=== PATIENT | male | born 1990 | race Caucasian/White ===

== ENCOUNTER 2018-11-18 09:41 | Outpatient (CLI) | payer OTHER, SELFPAY ==
[2018-11-18 12:50] LABS: Abs Immature Grans 0.02 k/cumm (0.0-0.09); Absolute Basophil Count 0.01 k/cumm (0.0-0.2); Absolute Eosinophil Count 0.04 k/cumm (0.0-0.7); Absolute Lymphocyte Count 1.32 k/cumm (1.2-3.4); Absolute Monocyte Count 0.96 k/cumm (0.11-0.7); Absolute Neutrophil Count 2.59 k/cumm (1.2-6.7); Basophils % 0.2; Eosinophils % 0.8; HCT 46.6 % (40.0-50.0); HGB 15.2 g/dL (13.5-17.5); Immature Grans % 0.4; Lymphocytes % 26.7; Mean Corp. HGB Concentration 32.6 g/dL (32.0-36.0); Mean Corpuscular Hemoglobin 31.1 pg (27.0-33.0); Mean Corpuscular Volume 95.3 fL (80-95); Mean Platelet Volume 11.2 fL (8.0-11.0); Monocytes % 19.4; Neutrophils % 52.5; Platelet Count 212 x1000/uL (130-400); RBC 4.89 m/cumm (4.50-6.00); RBC Distribution Width 14.2 % (11.8-14.1); White Blood Cell Count 4.94 k/cumm (4.4-10.8)
[2018-11-18 13:20] LABS: ALT 30 U/L (12-78); AST 19 U/L (15-37); Albumin 4.3 g/dL (3.4-5.0); Alkaline Phosphatase 76 U/L (46-116); Amylase 42 U/L (25-115); Anion Gap 12.2 mmol/L (3-11); BUN 14 mg/dL (7-18); Bilirubin, Total 0.3 mg/dL (0.2-1.0); CO2 26.8 mmol/L (21.0-32.0); CREATININE 1.23 mg/dL (0.70-1.30); Calcium 9.3 mg/dL (8.5-10.1); Chloride 101 mmol/L (98-107); Glucose 85 mg/dL (70-100); Lipase 84 U/L (73-393); Magnesium 2.3 mg/dL (1.8-2.4); Potassium 4.6 mmol/L (3.5-5.1); Sodium 140 mmol/L (136-145); Total Protein 7.8 g/dL (6.4-8.2)
== END 2018-11-18 10:01 ==
PROVIDERS: PCP Family Medicine; Visit Provider Nurse Practitioner Family
DX: R10.13 Epigastric pain (principal)
CPT/HCPCS: 36415; 80053; 83690; 82150; 83735; 85025

== ENCOUNTER 2018-11-21 01:11 | Outpatient (CLI) | payer OTHER, SELFPAY ==
--- NOTE | 2018-11-21 07:57 | DI.US_ITS ---
SYMPTOM/DIAGNOSIS: EPIGASTRIC PAIN, R10.13, S/P MESH HERNIA REPAIR ABDOMINAL ULTRASOUND: The visualized liver parenchyma is normal in appearance. There is no evidence of cholelithiasis. The common bile duct is of normal diameter. The pancreas and spleen appear intact. No renal abnormality is seen. The abdominal aorta is of normal diameter. Normal appearance of IVC. CONCLUSION: Normal abdominal ultrasound. The patient has reportedly had ventral hernia repair. No gross recurrent hernia is seen by ultrasound criteria. If there is a high clinical suspicion of recurrent hernia, additional evaluation with CT could be considered.
== END 2018-11-21 01:31 ==
PROVIDERS: PCP Family Medicine; Visit Provider Nurse Practitioner Family
DX: R10.13 Epigastric pain (principal); Z98.890 Other specified postprocedural states
CPT/HCPCS: 76700

== ENCOUNTER 2018-12-04 19:04 | Emergency (ER) | payer OTHER, SELFPAY ==
[2018-12-04 19:12] VITALS: BP 136/81; PULSE 101; RESP 18; TEMP 36.5; O2SAT 100
[2018-12-04] MEDS: Tetracaine 0.5% 4 ML BTL (19:39)
[2018-12-04] MEDS: Erythromycin Ophth Oint 3.5 GM TUBE (19:39)
[2018-12-04] MEDS: Fluorescein STRIPS 100/BOX 1 MG (19:39)
--- NOTE | 2018-12-04 19:40 | ED.GENADUL_ITS ---
Discharge Plan Disposition Patient Disposition: HOME Condition: Good Discharge Details Chief Complaint: EyeProblem Clinical Impression: Abrasion, corneal Primary Care Provider: Moises Lauren ED Provider: Taco Jorge Home Meds and New Rx's Prescriptions: No Action ondansetron HCl 8 mg tablet 8 mg PO TID PRN (Reason: nausea and vomiting) Qty: 60 RF: 0 cyclobenzaprine 5 MG tablet 5 - 10 mg PO tid prn Qty: 60 RF: 0 venlafaxine 75 mg capsule,extended release 24hr 75 mg PO DAILY Qty: 90 RF: 1 Discharge Instructions Instructions: Corneal Abrasion (ED) Additional Instructions: Please use the erythromycin ointment 3 times a day. 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 If you notice any worsening of your symptoms, or any new symptoms such as change in your vision, worsening eye pain, vomiting, diarrhea, fever, chills, shortness of breath, chest pain, numbness, weakness, or fainting , please return immediately to the emergency department for reevaluation. Please follow up with your primary care provider as soon as possible for reassessment and reevaluation. As always, it was a pleasure participating in your medical care today. Referrals: [facility] [OTHER] - Discharge Data Discharge Date/Time-TO BE ENTERED AT DEPARTURE: 12/04/18 19:47 Medical Decision Making This is a 28-year-old male with no significant past medical history whose tetanus is up-to-date who presents for evaluation of abrasion to his right eye. Corneal abrasion is present, no evidence of rust ring, foreign body, or other significant abnormality. Negative Anshul sign. Visual acuity is stable. He is not a contact lens wearer. We will give erythromycin ointment, recommend close follow-up with optometry. I have extensively reviewed the treatment plan and discharge instructions with the patient. I have addressed all patient concerns at this time. The patient was made aware of what symptoms to monitor for that would warrant a return to the emergency department. Discussed the plan with the patient, they demonstrate verbal understanding and agreement with our assessment and plan at this time. HPI General Date/Time Provider Initiated Documentation: 12/04/18 19:08 . HPI Narrative: This is a 28-year-old male with no significant past medical history whose tetanus is updated last year, who presents today for evaluation of right eye pain. Patient was removing a battery from underneath the car when he felt something fall into his eye. He washed out with water, but still feels like there is sandpaper under his eye. He denies any significant visual changes. This occurred roughly 6 hours ago. He denies any associated headache, numbness tingling or weakness. He has no other complaints or modifying factors. He does not use contact lenses. Related Data Home Medications Medication Instructions Recorded Confirmed cyclobenzaprine 5 - 10 mg PO tid prn #60 tab-cap 06/01/17 12/04/18 venlafaxine ER 75 mg 75 mg PO DAILY #90 tab-cap 09/20/18 12/04/18 capsule,extended release 24 hr ondansetron HCl 8 mg tablet 8 mg PO TID PRN #60 tab 11/18/18 12/04/18 Previous Rx's Medication Instructions Recorded cyclobenzaprine 5 - 10 mg PO tid prn #60 tab-cap 06/01/17 venlafaxine ER 75 mg 75 mg PO DAILY #90 tab-cap 09/20/18 capsule,extended release 24 hr ondansetron HCl 8 mg tablet 8 mg PO TID PRN #60 tab 11/18/18 Allergies Allergy/AdvReac Type Severity Reaction Status Date / Time cephalexin AdvReac Intermediate GI Unverified 12/04/18 19:14 DISTRESS-N/V/D General Stated Complaint: EyeProblem JUANITO: 4 Review of Systems Review of Systems All systems reviewed & are unremarkable except as noted in HPI and below PFSH Surgical History Tooth extraction Family History Mother Personal history of malignant neoplasm Father Myocardial infarction Sister No problems noted. Sister No problems noted. Grandfather No problems noted. Grandfather No problems noted. Grandmother No problems noted. Grandmother No problems noted. Social History Smoking/Tobacco Use Status: Never Substance use type: does not use Do you feel safe at home: Yes Do you feel safe in your relationship?: Yes Exam Narrative Exam Narrative: 1.Const: Well-nourished, Well-developed, appearing stated age 2.Eyes: PERRL, no conjunctival injection, and symmetrical lids. Right eye: EOMI, PERRL, Peripheral vision intact. No nystagmus. Fundoscopic exam shows normal optic discs and normal vasculature. No external signs of preseptal cellulitis, no redness around the eye, no proptosis. No hyphema, no signs of trauma around the eye, no periorbital emphysema. Fluorescein exam is positive for mild abrasion in the 4 o'clock position on the right eye, negative Anshul sign. Visual acuity as documented in chart. 3.ENT: Atraumatic external nose and ears. Moist MM. Neck: Symmetric, trachea midline, No thyromegaly. 4.CVS: +S1/S2, No murmurs or gallops. Peripheral pulses 2+ and equal in all extremities. Brisk capillary refill in all extremities. 5.RESP: Unlabored respiratory effort. Clear to auscultation bilaterally. No wheezes rales or rhonchi 6.GI: Soft, Nontender/Nondistended, No hepatosplenomegaly. No guarding or rebound. 7.MSK: Normocephalic/Atraumatic, Extremities w/o deformity or ttp No cyanosis or clubbing, Normal movement of all extremities 8.Skin: Warm, Dry. No rashes or lesions. 9.Neuro: workers compensation attorney II-XII grossly intact. Sensation grossly intact, no focal neurologic deficits. 10.Psych: (AAO) x3. Appropriate mood and affect Course Vital Signs Temperature 36.5 C 12/04/18 19:12 Pulse 101 H 12/04/18 19:12 Respiratory Rate 18 12/04/18 19:12 Blood Pressure 136/81 12/04/18 19:12 Pulse Oximetry 100 12/04/18 19:12 Temperature 36.5 C 12/04/18 19:12 Temperature Source Temporal Artery Scan 12/04/18 19:12 Pulse 101 H 12/04/18 19:12 Respiratory Rate 18 12/04/18 19:12 Blood Pressure 136/81 12/04/18 19:12 Blood Pressure Position Sitting 12/04/18 19:12 Pulse Oximetry 100 12/04/18 19:12 Oxygen Delivery Method Room Air 12/04/18 19:12 Oxygen Flow Rate 0 12/04/18 19:12 Pain Level 8 12/04/18 19:12
[2018-12-04 19:42] VITALS: BP 136/81; PULSE 101; RESP 18; TEMP 36.5; O2SAT 100
== END 2018-12-04 19:47 | disposition home or self-care (01) ==
PROVIDERS: Emergency Provider Student in an Organized Health Care Education/Training Program; PCP Family Medicine
DX: S05.01XA Injury of conjunctiva and corneal abrasion without foreign body, right eye, initial encounter (principal); X58.XXXA Exposure to other specified factors, initial encounter
CPT/HCPCS: 99283

== ENCOUNTER 2018-12-13 09:41 | Emergency (ER) | payer SELFPAY ==
[2018-12-13 09:44] VITALS: BP 151/79; PULSE 94; RESP 20; TEMP 36.8; O2SAT 98
--- NOTE | 2018-12-13 09:53 | W.ED.GENAD ---
Discharge Plan Disposition Patient Disposition: HOME Condition: Improving Discharge Details Chief Complaint: Laceration Clinical Impression: Laceration of arm Primary Care Provider: Moises Lauren ED Provider: Nadiya Graham Home Meds and New Rx's Prescriptions: Continued cyclobenzaprine 5 MG tablet 5 - 10 mg PO tid prn Qty: 60 RF: 0 venlafaxine 75 mg capsule,extended release 24hr 75 mg PO DAILY Qty: 90 RF: 1 Discharge Instructions Instructions: Laceration (ED) Additional Instructions: Keep wound clean, dry, covered. May wash with running water and soap but please do not soak or submerge the wound. Please monitor wound for signs of infection including redness, warmth, drainage, increased pain, fever/chills. If these or other new/worsening symptoms arise please seek care urgently once again. Please return in 10 days for suture removal Referrals: Moises Lauren [Primary Care Provider] - Medical Decision Making Patient is a 28-year-old male presents today for laceration of the left forearm. He reports that while at work earlier today he and a coworker were working with a piece of metal. He reports that when she tried to move that he quickly moved his arm resulting in the laceration to left forearm. Forearm is on the ulnar side of the proximal 2-1/2 cm in length with a 5 mm gap at the center. There is to be in the subcutaneous tissue does not violate any musculature. He denies any altered sensation. Denies other injury at the time of the incident. Patient I discussed closure options. We have decided upon sutures. We discussed risk/benefits as well as expected procedural steps. He voices understanding and wishes to proceed. Patient reports last tetanus within the last 5 years and completed by his primary care Procedure note: Using standard sterile technique, the wound was first cleansed with chlorhexidine and sterile saline. 1% lidocaine with epinephrine was then used to anesthetize the area. 4 cc was used. This sufficiently anesthetized the area. The wound was then copiously irrigated and explored to base in a bloodless field. No foreign body or debris was noted. Attention was then turned to closure. Using 5-0 nylon, the wound was closed using simple interrupted stitches. #4 replaced. Patient tolerated procedure well. Patient I discussed wound care in depth. We discussed the signs symptoms of infection when to seek care urgently once again. We will leave the current dressing on for the next 24 hours. I did advise that he cover this when it worked to help prevent infection. Advised to return in 10 days for suture removal. All his questions and concerns were addressed and he is in agreement with this plan. HPI General Mode of arrival: ambulatory. Date/Time Provider Initiated Documentation: 12/13/18 09:52. Limitations to Documentation: no limitations. Information obtained by: RN notes reviewed. History of Present Illness 28 year old M presents to the emergency department with the chief complaint of laceration left forearm, described as moderate, with intensity rated at 5. Quality is described as aching, and is localized to the left and upper extremity. Patient reports no radiation. Patient started experiencing this minute(s) and it has been constant. No relieving factors improve symptom(s), No exacerbating factors reported . Patient notes no other symptoms.. Patient did receive the following treatments prior to arrival, none Related Data Home Medications Medication Instructions Recorded Confirmed cyclobenzaprine 5 - 10 mg PO tid prn #60 tab-cap 06/01/17 12/13/18 venlafaxine ER 75 mg 75 mg PO DAILY #90 tab-cap 09/20/18 12/13/18 capsule,extended release 24 hr Previous Rx's Medication Instructions Recorded cyclobenzaprine 5 - 10 mg PO tid prn #60 tab-cap 06/01/17 venlafaxine ER 75 mg 75 mg PO DAILY #90 tab-cap 09/20/18 capsule,extended release 24 hr Allergies Allergy/AdvReac Type Severity Reaction Status Date / Time cephalexin AdvReac Intermediate GI Unverified 12/13/18 09:46 DISTRESS-N/V/D General Stated Complaint: Laceration JUANITO: 3 Review of Systems Constitutional Reports as per HPI, Denies chills and Denies fever(s) Musculoskeletal Reports as per HPI Integumentary/Breasts Reports as per HPI Neurologic Reports as per HPI, Denies sensory deficit and Denies paresthesias [facility] Surgical History Tooth extraction Family History Mother Personal history of malignant neoplasm Father Myocardial infarction Sister No problems noted. Sister No problems noted. Grandfather No problems noted. Grandfather No problems noted. Grandmother No problems noted. Grandmother No problems noted. Social History Smoking/Tobacco Use Status: Current every day Substance use type: marijuana Do you feel safe at home: Yes Do you feel safe in your relationship?: Yes Exam Const General: cooperative, healthy appearing, comfortable, no acute distress and well developed Nutritional Appearance: average body habitus and well nourished Orientation: alert and awake Resp Effort & Inspection: normal respiratory effort, able to speak in complete sentences and no respiratory distress Cardio Rate: regular rate Rhythm: regular rhythm Skin Trauma: laceration (3cm left forearm) Neuro General: alert and awake Cognition: normal cognition Speech: speech normal Gait: normal gait Sensory Exam: no sensory deficits noted Extrem Left upper extremity: full ROM, normal capillary refill, no joint enlargement and elbow/forearm Details: tenderness (around laceration), normal ROM and laceration; no swelling, no unusual warmth, no ecchymosis and no crepitus; abnormal to inspection (laceration as above) Psych Appearance: grossly normal and well kempt Mental Status: mental status grossly normal Speech and Movement: speech and movement normal Course Vital Signs Temperature 36.8 C 12/13/18 09:44 Pulse 94 H 12/13/18 09:44 Respiratory Rate 20 12/13/18 09:44 Blood Pressure 151/79 H 12/13/18 09:44 Pulse Oximetry 98 12/13/18 09:44 Temperature 36.8 C 12/13/18 09:44 Temperature Source Temporal Artery Scan 12/13/18 09:44 Pulse 94 H 12/13/18 09:44 Respiratory Rate 20 12/13/18 09:44 Respiratory Effort Non-Labored 12/13/18 09:44 Blood Pressure 151/79 H 12/13/18 09:44 Pulse Oximetry 98 12/13/18 09:44 Oxygen Delivery Method Room Air 12/13/18 09:44 Oxygen Flow Rate 0 12/13/18 09:44 Pain Level 5 12/13/18 09:44
--- NOTE | 2018-12-13 10:11 | ED.GENADUL_ITS ---
Discharge Plan Disposition Patient Disposition: HOME Condition: Improving Discharge Details Chief Complaint: Laceration Clinical Impression: Laceration of arm Primary Care Provider: Moises Lauren ED Provider: Nadiya Graham Home Meds and New Rx's Prescriptions: Continued cyclobenzaprine 5 MG tablet 5 - 10 mg PO tid prn Qty: 60 RF: 0 venlafaxine 75 mg capsule,extended release 24hr 75 mg PO DAILY Qty: 90 RF: 1 Discharge Instructions Instructions: Laceration (ED) Additional Instructions: Keep wound clean, dry, covered. May wash with running water and soap but please do not soak or submerge the wound. Please monitor wound for signs of infection including redness, warmth, drainage, increased pain, fever/chills. If these or other new/worsening symptoms arise please seek care urgently once again. Please return in 10 days for suture removal Referrals: Moises Lauren [Primary Care Provider] - Medical Decision Making Patient is a 28-year-old male presents today for laceration of the left forearm. He reports that while at work earlier today he and a coworker were working with a piece of metal. He reports that when she tried to move that he quickly moved his arm resulting in the laceration to left forearm. Forearm is on the ulnar side of the proximal 2-1/2 cm in length with a 5 mm gap at the center. There is to be in the subcutaneous tissue does not violate any musculature. He denies any altered sensation. Denies other injury at the time of the incident. Patient I discussed closure options. We have decided upon sutures. We discussed risk/benefits as well as expected procedural steps. He voices understanding and wishes to proceed. Patient reports last tetanus within the last 5 years and completed by his primary care Procedure note: Using standard sterile technique, the wound was first cleansed with chlorhexidine and sterile saline. 1% lidocaine with epinephrine was then used to anesthetize the area. 4 cc was used. This sufficiently anesthetized the area. The wound was then copiously irrigated and explored to base in a bloodless field. No foreign body or debris was noted. Attention was then turned to closure. Using 5-0 nylon, the wound was closed using simple interrupted stitches. #4 replaced. Patient tolerated procedure well. Patient I discussed wound care in depth. We discussed the signs symptoms of infection when to seek care urgently once again. We will leave the current dressing on for the next 24 hours. I did advise that he cover this when it worked to help prevent infection. Advised to return in 10 days for suture removal. All his questions and concerns were addressed and he is in agreement with this plan. HPI General Mode of arrival: ambulatory . Date/Time Provider Initiated Documentation: 12/13/18 09:52 . Limitations to Documentation: no limitations . Information obtained by: RN notes reviewed . History of Present Illness 28 year old M presents to the emergency department with the chief complaint of laceration left forearm, described as moderate, with intensity rated at 5. Quality is described as aching, and is localized to the left and upper extremity. Patient reports no radiation. Patient started experiencing this minute(s) and it has been constant. No relieving factors improve symptom(s), No exacerbating factors reported . Patient notes no other symptoms.. Patient did receive the following treatments prior to arrival, none Related Data Home Medications Medication Instructions Recorded Confirmed cyclobenzaprine 5 - 10 mg PO tid prn #60 tab-cap 06/01/17 12/13/18 venlafaxine ER 75 mg 75 mg PO DAILY #90 tab-cap 09/20/18 12/13/18 capsule,extended release 24 hr Previous Rx's Medication Instructions Recorded cyclobenzaprine 5 - 10 mg PO tid prn #60 tab-cap 06/01/17 venlafaxine ER 75 mg 75 mg PO DAILY #90 tab-cap 09/20/18 capsule,extended release 24 hr Allergies Allergy/AdvReac Type Severity Reaction Status Date / Time cephalexin AdvReac Intermediate GI Unverified 12/13/18 09:46 DISTRESS-N/V/D General Stated Complaint: Laceration JUANITO: 3 Review of Systems Constitutional Reports as per HPI, Denies chills and Denies fever(s) Musculoskeletal Reports as per HPI Integumentary/Breasts Reports as per HPI Neurologic Reports as per HPI, Denies sensory deficit and Denies paresthesias [facility] Surgical History Tooth extraction Family History Mother Personal history of malignant neoplasm Father Myocardial infarction Sister No problems noted. Sister No problems noted. Grandfather No problems noted. Grandfather No problems noted. Grandmother No problems noted. Grandmother No problems noted. Social History Smoking/Tobacco Use Status: Current every day Substance use type: marijuana Do you feel safe at home: Yes Do you feel safe in your relationship?: Yes Exam Const General: cooperative, healthy appearing, comfortable, no acute distress and well developed Nutritional Appearance: average body habitus and well nourished Orientation: alert and awake Resp Effort & Inspection: normal respiratory effort, able to speak in complete sentences and no respiratory distress Cardio Rate: regular rate Rhythm: regular rhythm Skin Trauma: laceration (3cm left forearm) Neuro General: alert and awake Cognition: normal cognition Speech: speech normal Gait: normal gait Sensory Exam: no sensory deficits noted Extrem Left upper extremity: full ROM, normal capillary refill, no joint enlargement a nd elbow/forearm Details: tenderness (around laceration), normal ROM and laceration; no swelling, no unusual warmth, no ecchymosis and no crepitus; abnormal to inspection (laceration as above) Psych Appearance: grossly normal and well kempt Mental Status: mental status grossly normal Speech and Movement: speech and movement normal Course Vital Signs Temperature 36.8 C 12/13/18 09:44 Pulse 94 H 12/13/18 09:44 Respiratory Rate 20 12/13/18 09:44 Blood Pressure 151/79 H 12/13/18 09:44 Pulse Oximetry 98 12/13/18 09:44 Temperature 36.8 C 12/13/18 09:44 Temperature Source Temporal Artery Scan 12/13/18 09:44 Pulse 94 H 12/13/18 09:44 Respiratory Rate 20 12/13/18 09:44 Respiratory Effort Non-Labored 12/13/18 09:44 Blood Pressure 151/79 H 12/13/18 09:44 Pulse Oximetry 98 12/13/18 09:44 Oxygen Delivery Method Room Air 12/13/18 09:44 Oxygen Flow Rate 0 12/13/18 09:44 Pain Level 5 12/13/18 09:44
[2018-12-13 12:39] VITALS: BP 151/79; PULSE 94; RESP 20; TEMP 36.8; O2SAT 98
== END 2018-12-13 10:41 | disposition home or self-care (01) ==
LOC: ER 10:43
PROVIDERS: Emergency Provider Physician Assistant; PCP Family Medicine
DX: S51.812A Laceration without foreign body of left forearm, initial encounter (principal); W45.8XXA Other foreign body or object entering through skin, initial encounter; Y99.0 Civilian activity done for income or pay
CPT/HCPCS: 12001

== ENCOUNTER 2020-12-02 03:34 | Outpatient (CLI) | payer BC, SELFPAY ==
[2020-12-03 14:14] LABS: COVID-19 RT-PCR UVMMC Result Negative (Negative)
== END 2020-12-02 03:35 | disposition home or self-care (01) ==
LOC: LBO 03:34
PROVIDERS: PCP Family Medicine; Visit Provider Family Medicine
DX: Z20.828 Contact with and (suspected) exposure to other viral communicable diseases (principal)
CPT/HCPCS: U0003

== ENCOUNTER 2023-08-17 17:59 | Emergency (ER) | payer BC, SELFPAY ==
[2023-08-17 18:05] VITALS: BP 204/110; PULSE 115; RESP 20; TEMP 36.6; O2SAT 99
[2023-08-17] MEDS: Amoxicillin 875/Clav. 125 TAB PO (18:37)
--- NOTE | 2023-08-17 18:38 | ED.GENADUL_ITS ---
Discharge Plan Disposition Patient Disposition: Home Condition: Stable Discharge Details Clinical Impression: Pain, dental Primary Care Provider: Reji Hdz ED Provider: Lew Warren Home Meds and New Rx's Prescriptions: New amoxicillin-pot clavulanate 875-125 mg tablet 1 tab PO BID 5 Days Qty: 10 0RF No Action venlafaxine 75 mg capsule,extended release 24hr 75 mg PO DAILY Qty: 90 3RF Discharge Instructions Instructions: Toothache (ED) Additional Instructions: Please obtain dental follow-up. Return to the emergency department for any worsening symptoms Medical Decision Making 32-year-old male presents with left lower molar dental pain, carious partially fractured tooth, no evidence of deep space infection of head or neck. Hypertension tachycardia likely related to pain. No respiratory symptoms, tolerating secretions normal voice. Patient has had Augmentin in the past with great success. Will dose Augmentin here in department. Home care instructions and return precautions given. Patient will seek dental follow-up. HPI General Date/Time Provider Initiated Documentation: 08/17/23 18:00 . HPI Narrative: 32-year-old male presents with left lower molar discomfort. Related Data Home Medications Medication Instructions Recorded Confirmed venlafaxine 75 mg capsule,extended 75 mg PO DAILY #90 tab-caps 02/22/23 08/17/23 release 24 hr amoxicillin 875 mg-potassium 1 tab PO BID 5 days #10 tabs 08/17/23 clavulanate 125 mg tablet Previous Rx's Medication Instructions Recorded venlafaxine 75 mg capsule,extended 75 mg PO DAILY #90 tab-caps 02/22/23 release 24 hr amoxicillin 875 mg-potassium 1 tab PO BID 5 days #10 tabs 08/17/23 clavulanate 125 mg tablet Allergies Allergy/AdvReac Type Severity Reaction Status Date / Time cephalexin AdvReac Intermediate GI Verified 08/17/23 18:05 DISTRESS-N/V/D General Stated Complaint: DentalOral JUANITO: 4 Review of Systems Narrative: Review of Systems Constitutional: negative Eyes: negative ENT: Dental pain Cardiovascular: negative Respiratory: negative Gastrointestinal: negative : negative Musculoskeletal: negative Skin: negative Neurologic: negative Psych: negative PFSH All Active Problems (Updated 08/17/23 @ 18:40 by Lew Warren MD) Pain, dental (Acute) Depression (Chronic) CTS (carpal tunnel syndrome) (Acute) Surgical History (Updated 03/27/21 @ 15:36 by Reji Hdz NP) H/O umbilical hernia repair Tooth extraction Family History (Updated 04/05/20 @ 14:12 by Suzy Ochoa) Mother Personal history of malignant neoplasm COLON/LIVER Father Myocardial infarction Social History (Updated 03/28/21 @ 14:32 by Suzy Ochoa) Smoking/Tobacco Use Status: Current every day Tobacco Type: cigarettes and e-cigarettes Quit status: considering quitting Second Hand Exposure: Yes Smoking risk assessment performed?: Yes Alcohol Intake: current Alcohol Intake frequency: a few times a week Alcohol type: beer Drug use: Occasionally Substance use type: marijuana Caregiver/Support person: Yes Household members: none Housing: apartment Communication Needs: None Do you need help understanding health information?: Never Pets and animals: Yes Pets and animals: cat(s) Sexually active: Yes Do you think of yourself as: straight/heterosexual Current gender identity: male What is your relationship status?: never How often do you talk on the phone with friends or family?: once per week How often do you get together with friends or relatives?: three or more times per week How often do you attend latter-day or amish services?: decline to answer Do you belong to any clubs or organized social groups?: no Panel score (0-1 are the most socially isolated patients): 1 Duration: > 90 minutes/day Frequency: daily Shantell/Lutheran: None Special shantell needs: No Seatbelt use: always Helmet use: Yes Helmet use: sometimes Drive 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 Normal voice tolerating secretions. Neck: supple, trachea midline; full ROM Chest: normal to inspection Respiratory: normal respiratory effort, speaking in full sentences Skin: no lesions, rashes or trauma appreciated Neuro: AAOx3, normal speech, moving all extremities Psych: Appropriate mood and affect Course Vital Signs Vital signs: Vital Signs Temperature 36.6 C 08/17/23 18:05 Pulse 115 H 08/17/23 18:05 Respiratory Rate 20 08/17/23 18:05 Blood Pressure 204/110 H 08/17/23 18:05 Pulse Oximetry 99 08/17/23 18:05 Temperature 36.6 C 08/17/23 18:05 Temperature Source Oral 08/17/23 18:05 Pulse 115 H 08/17/23 18:05 Respiratory Rate 20 08/17/23 18:05 Respiratory Effort Normal 08/17/23 18:08 Blood Pressure 204/110 H 08/17/23 18:05 Pulse Oximetry 99 08/17/23 18:05 Oxygen Delivery Method Room Air 08/17/23 18:05 Oxygen Flow Rate 0 08/17/23 18:05
== END 2023-08-17 18:46 | disposition home or self-care (01) ==
PROVIDERS: Emergency Provider Emergency Medicine; PCP Nurse Practitioner Family
DX: R68.84 Jaw pain (principal); K08.89 Other specified disorders of teeth and supporting structures
CPT/HCPCS: 99283